=== PATIENT | female | born 2005 | race African-American/Black ===

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

== ENCOUNTER 2023-11-05 10:01 | Emergency (ER) | payer MEDICAID, SELFPAY ==
[2023-11-05 10:11] VITALS: BP 114/64; PULSE 82; RESP 18; TEMP 36.5; O2SAT 98
--- NOTE | 2023-11-05 10:13 | ED.SKABFB ---
HPI - Skin/Abscess/Foreign Bdy General Chief complaint: Skin/Abscess/Foreign Body Stated complaint: rashes Time Seen by Provider: 11/05/23 10:14 Source: patient, RN notes reviewed and old records reviewed Mode of arrival: ambulatory Limitations: no limitations History of Present Illness HPI narrative: patient presents with complaint of fine itchy rash that has been present for a couple of days. She reports that she spent the weekend over at her boyfriend's house, he has a lot of dogs. She did not have the rash prior to this. The rash is scattered, mostly on the neck and the arms. Patient takes hydroxyzine daily 2-3 times per day. She has been taking this as prescribed since the rash began. She also uses an unknown lotion for her eczema. She has not been using this over the past several days. She denies any change in detergents, lotions, soaps. No new foods. No wheezing Related Data Home Medications Medication Instructions Recorded Confirmed escitalopram oxalate 10 mg tablet 10 mg PO DAILY 12/01/22 11/05/23 hydroxyzine HCl 50 mg tablet 50 mg PO HS 12/01/22 11/05/23 norethindrone 1 mg-ethinyl 1 tablet PO DAILY 12/01/22 11/05/23 estradiol 20 mcg (24)-iron 75 mg (4) tablet (Lenora 24 Fe) Allergies Allergy/AdvReac Type Severity Reaction Status Date / Time No Known Allergies Allergy Verified 11/05/23 10:15 Review of Systems Review of Systems: All systems reviewed & are unremarkable except as noted in HPI and below Constitutional: Constitutional: Reports no additional constitutional complaints ENT: Reports system reviewed and no additional complaints, except as documented Cardiovascular: Cardiovascular: Reports no additional cardiovascular complaints Respiratory: Respiratory: Reports no additional respiratory complaints Gastrointestinal: Gastrointestinal: Reports no additional gastrointestinal complaints Integumentary/Breasts: Skin/Breast: Reports pruritus and Reports rash Comments: [facility] Past Medical History Medical History (Updated 11/05/23 @ 10:26 by Tatum Scott APRN) Patient denies medical problems Social History Social History Gender identity (if verbalized by the patient): Female Comments At the time of my signature, I reviewed and agree with the nursing past medical, surgical, social, and family history. There is no relevant family history pertinent to the patient complaint. Exam Const: General: cooperative, no acute distress, alert and awake Orientation/consciousness: oriented to person, oriented to place and oriented to time HENMT: Head: normal to inspection Resp: Effort & Inspection: normal respiratory effort and able to speak in complete sentences Auscultation: clear to auscultation bilaterally, no crackles, no rales, no rhonchi and no wheezes Cardio: Palpation: normal PMI Rate: regular rate Rhythm: regular rhythm Heart sounds: S1 normal heart sound present and S2 normal heart sound present Skin: General skin exam: normal color Rashes: rashes noted ( fine red raised rash noted to arms and neck) Neuro: General: oriented to person, oriented to place and oriented to time Cranial nerves: Yes CN's II-XII intact bilaterally Psych: Appearance: grossly normal Thought process: Normal thought process present Insight: Good insight present (Psych) Judgement: Good judgement present (Psych) Course Course Level of Care: Express Care Visit Vital Signs Vital signs: Vital Signs Temperature 97.7 F 11/05/23 10:11 Pulse Rate 82 11/05/23 10:11 Respiratory Rate 18 11/05/23 10:11 Blood Pressure 114/64 11/05/23 10:11 Pulse Oximetry 98 11/05/23 10:11 Oxygen Delivery Room Air 11/05/23 10:11 Temperature 97.7 F 11/05/23 10:11 Pulse Rate 82 11/05/23 10:11 Respiratory Rate 18 11/05/23 10:11 Blood Pressure 114/64 11/05/23 10:11 Pulse Oximetry 98 11/05/23 10:11 Oxygen Delivery Room
== END 2023-11-05 10:29 | disposition home or self-care (01) ==
PROVIDERS: Emergency Provider Nurse Practitioner Family
DX: L23.9 Allergic contact dermatitis, unspecified cause (principal)
CPT/HCPCS: 99211; G0463

== ENCOUNTER 2025-01-30 11:53 | Emergency (ER) | payer MEDICAID, SELFPAY ==
[2025-01-30 12:05] VITALS: BP 101/60; PULSE 88; RESP 14; TEMP 36.5; O2SAT 100
--- NOTE | 2025-01-30 12:33 | ED.EYEPROB ---
HPI - Eye Problem General Chief complaint: Eye Problems Stated complaint: pink eye Source: patient Mode of arrival: ambulatory Limitations: no limitations History of Present Illness HPI Narrative: this is a pleasant 19-year-old female who presents to the urgent care today with complaints of bilateral eye redness, discharge that is yellow in causing crusting to her eyelashes. Patient states that her eyes are constantly itching her. She denies any blurred vision, eye pain or distress. She does not were contacts she only wears glasses. No known sick contacts. chief complaint: eye pain and eye redness Onset description: sudden Duration: constant Location: both eyes Eye Symptoms: redness, itching and discharge Place: home Mechanism: none Associated symptoms: none Treatments Prior to Arrival: none Related Data Allergies Allergy/AdvReac Type Severity Reaction Status Date / Time No Known Allergies Allergy Verified 01/30/25 12:08 Review of Systems Review of Systems: All systems reviewed & are unremarkable except as noted in HPI and below PMFSH Past Medical History Medical History (Updated 01/30/25 @ 12:35 by Corry Anne APRN) Patient denies medical problems Social History Social History Gender identity (if verbalized by the patient): Female Exam Const: General: healthy appearing Nutritional Appearance: well nourished Orientation/consciousness: patient oriented x3 Limitations: no limitations HENMT: Head: normal to inspection Ears: external ears normal Face/Nose/Sinus: Normal external nose present Face and sinus: normal facial exam Mouth: Yes Normal oral and palatal mucosa present Teeth and gingiva: dentition normal Throat: posterior oropharynx normal Eyes: Conjunctivae: conjunctival abnormality bilateral conjunctival injection and discharge purulent Pupils: Equal, round and reactive pupils present EOM: EOMs intact bilaterally Neck: Neck: normal visual inspection Resp: Effort & Inspection: normal respiratory effort Cardio: Rate: regular rate Rhythm: regular rhythm GI: GI Palp: Yes Soft to palpation Auscultation: normal bowel sounds Skin: General skin exam: normal color Rashes: no rashes Neuro: General: patient oriented x3 Speech: normal speech Extrem: General: normal to inspection and no clubbing, cyanosis or edema Psych: Mental Status: mental status grossly normal Affect: normal affect Course Course Emergency Course: this is a pleasant 19-year-old female who presents to the urgent care today with complaints of bilateral eye redness, discharge that is yellow in causing crusting to her eyelashes. Patient states that her eyes are constantly itching her. She denies any blurred vision, eye pain or distress. She does not were contacts she only wears glasses. No known sick contacts. vital signs reviewed. discussed Diagnosis in treatment. Verbalized understanding. educated patient to keep from touching eyes, good hand hygiene, continue with antibiotic gel twice daily in each eye, wash each eye prior with Dylan's baby shampoo and pat dry. Tylenol as needed for pain follow the primary care provider in the next 2-3 days for further evaluation exam, return to the urgent care or emergency department with any worrisome sign or symptom. Answered all questions to her satisfaction she is agreeable to this plan. She denies any further needs or concerns to be addressed prior to discharge Level of Care: Express Care Visit Vital Signs Vital signs: Vital Signs Temperature 97.7 F 01/30/25 12:05 Pulse Rate 88 01/30/25 12:05 Respiratory Rate 14 01/30/25 12:05 Blood Pressure 101/60 01/30/25 12:05 Pulse Oximetry 100 01/30/25 12:05 Oxygen Delivery Room Air 01/30/25 12:05 Temperature 97.7 F 01/30/25 12:05 Pulse Rate 88 01/30/25 12:05 Respiratory Rate 14 01/30/25 12:05 Blood Pressure 101/60 01/30/25 12:05 Pulse Oximetry 100 01/30/25 12:05 Oxygen Delivery Room Air 01/30/25 12:05 MDM - Eye Problem MDM Narrative Medical decision making narrative: this is a pleasant 19-year-old female who presents to the urgent care today with complaints of bilateral eye redness, discharge that is yellow in causing crusting to her eyelashes. Patient states that her eyes are constantly itching her. She denies any blurred vision, eye pain or distress. She does not were contacts she only wears glasses. No known sick contacts. vital signs reviewed. discussed Diagnosis in treatment. Verbalized understanding. educated patient to keep from touching eyes, good hand hygiene, continue with antibiotic gel twice daily in each eye, wash each eye prior with Dylan's baby shampoo and pat dry. Tylenol as needed for pain follow the primary care provider in the next 2-3 days for further evaluation exam, return to the urgent care or emergency department with any worrisome sign or symptom. Answered all questions to her satisfaction she is agreeable to this plan. She denies any further needs or concerns to be addressed prior to discharge Differential Diagnosis Differential diagnosis: Likely conjunctivitis and periorbital cellulitis Medical Records Attestation: I reviewed the patient's medical records. Discharge Plan Discharge Clinical Impression: Bacterial conjunctivitis Patient Disposition: Home Condition: Stable Instructions: Antibiotic Form, Conjunctivitis (ED) Additional Instructions: keep from touching eyes, good hand hygiene continue with antibiotic gel twice daily in each eye wash each eye prior with Dylan's baby shampoo and pat dry. Tylenol as needed for pain follow the primary care provider in the next 2-3 days for further evaluation exam, return to the urgent care or emergency department with any worrisome sign or symptom Patient Language: Italian Prescriptions: New erythromycin 5 mg/gram (0.5 %) ointment 0.5 inch EACH EYE BID 5 Days Qty: 3.5 0RF Follow-up/Referrals: UNKNOWN,DOCTOR [Primary Care Provider] Stand Alone Forms: Work/School Release IP Time of Disposition: 12:36
== END 2025-01-30 12:40 | disposition home or self-care (01) ==
PROVIDERS: Emergency Provider Nurse Practitioner Family
DX: H10.9 Unspecified conjunctivitis (principal)
CPT/HCPCS: 99213; G0463

== ENCOUNTER 2025-02-02 17:53 | Emergency (ER) | payer MEDICAID, SELFPAY ==
[2025-02-02 18:05] VITALS: BP 110/66; PULSE 81; RESP 14; TEMP 36.7; O2SAT 100
--- NOTE | 2025-02-02 18:08 | ED_ITS ---
HPI - URI/Sore Throat General Chief Complaint: Urogenital-Female Stated Complaint: Vaginal Bleeding / Sore Throat Time Seen by Provider: 02/02/25 18:08 Source: patient Mode of arrival: ambulatory Limitations: no limitations History of Present Illness HPI Narrative: Carole is a 19 year old female patient presenting to the clinic today with c/o with vaginal pain, vaginal discharge, and sore throat. She reports sore throat started today. She denies any other URI symptoms. No fevers, chills, body aches. Reports vaginal pain and odorous yellow vaginal discharge that started on Sunday. She is reporting some lower back pain. Has had recent intercourse 1 week ago. States she does have a new sexual partner. Has not been using condoms. Feels as though she has a vaginal tear to the posterior opening of her vagina. Last intercourse was not painful or rough. Related Data Allergies Allergy/AdvReac Type Severity Reaction Status Date / Time No Known Allergies Allergy Verified 02/02/25 18:02 Review of Systems Review of Systems: Pertinent positives per HPI. Patient denies any fever, chills, rash, headache, visual changes, dizziness, cough, shortness of breath, chest pain, palpitations, nausea, vomiting, diarrhea, constipation, abdominal pain, or any urinary issues. PMFSH Past Medical History Medical History Patient denies medical problems Social History Social History Gender identity (if verbalized by the patient): Female Comments At the time of my signature, I reviewed and agree with the nursing past medical, surgical, social, and family history. There is no relevant family history pertinent to the patient complaint. Exam Narrative: General: Well-developed, well nourished, in no apparent distress Head: Normocephalic, atraumatic Eyes: Pupils equally round and reactive to light bilaterally, EOM intact, sclera and conjunctive clear, no discharge, lids normal Ears: TMs intact and clear, ear canals clear, no drainage, grossly hearing normal. Nose: Nares patent, no discharge, no inflammation, no sinus tenderness. Mouth: Oral pharynx without lesions or masses, good dentition, MMM. Neck: Supple, trachea midline, no enlargement of anterior or posterior cervical nodes, no thyroid masses or goiter palpable. Cardio: Regular rate and rhythm, s1 and s2 normal, no murmur appreciated. Resp: Clear to auscultation bilaterally, no rhonchi, rales, wheezing or rubs Abdomen: Soft, pliable, bowel sounds present in all quadrants, non-tender to palpation, no CVAT tenderness. : Pelvic exam performed with (Katherin DAVE) at bedside. Verbal consent obtained from patient. Normal external female genitalia without masses Urinary meatus: patent without discharge, Vagina: No masses, light yellow discharge, ulcerated vaginal lesion to the posterior left vaginal os Course Course Emergency Course: Portions of this record may have been created with voice recognition software. Level of Care: Express Care Visit Vital Signs Vital signs: Vital Signs Temperature 36.7 C 02/02/25 18:05 Pulse Rate 81 02/02/25 18:05 Respiratory Rate 14 02/02/25 18:05 Blood Pressure 110/66 02/02/25 18:05 Pulse Oximetry 100 02/02/25 18:05 Oxygen Delivery Room Air 02/02/25 18:05 Temperature 36.7 C 02/02/25 18:05 Pulse Rate 81 02/02/25 18:05 Respiratory Rate 14 02/02/25 18:05 Blood Pressure 110/66 02/02/25 18:05 Pulse Oximetry 100 02/02/25 18:05 Oxygen Delivery Room Air 02/02/25 18:05 Vital signs reviewed MDM - URI/Sore Throat MDM Narrative Medical decision making narrative: At the time of visit patient is resting comfortably on the exam table. Patient appears to be nontoxic. C/o with vaginal pain, vaginal discharge, and sore throat. She reports sore throat started today. She denies any other URI symptoms. No fevers, chills, body aches. Reports vaginal pain and yellow va ginal discharge that started on Sunday. She is reporting some lower back pain. Has had recent intercourse 1 week ago. States she does have a new sexual partner. Has not been using condoms. Feels as though she has a vaginal tear to the posterior vaginal opening. Last intercourse was not painful or rough. On exam patient has bilateral TMs intact and clear, no nasal drainage, oral pharynx red with bilateral tonsillar enlargement, no cervical lymphadenopathy, lung sounds are clear, heart rates regular rate rhythm, abdomen soft pliable, nondistended, no organomegaly, bowel sounds present all 4 quadrants, vaginal exam performed-ulcerated lesion to the left posterior vaginal opening, tender/burning to palpation, faint yellow vaginal discharge on vaginal swabs, full pelvic exam with vaginal speculum was not performed due to patient's discomfort. Labs: Strep test was positive in the clinic today. Urine shows 2+ blood, bedside test is negative, Bacterial vaginosis, genital culture, chlamydia, gonorrhea, Trichomonas, HSV swab was sent to the lab. Plan: I suspect patient has strep pharyngitis, vaginal discharge, vaginal pain- with ulcerated lesions-likely genital herpes. Prescription for Augmentin, acyclovir, and viscous lidocaine was sent to the pharmacy. Anticipatory guidance given. We will hold off on any other treatment at this time until we get results back. Supportive measures were discussed with the patient and they voiced understanding discharge instructions and agrees to treatment plan. Return precautions reviewed Differential Diagnosis Differential diagnosis: Likely upper respiratory infection, otitis media, sinusitis, viral infection, bronchitis, influenza, pharyngitis and other (COVID) Lab Data Labs: Lab Results 02/02/25 02/02/25 02/02/25 Range/Units 18:27 18:49 18:55 POC Urine Color POC Urine Clarity POC Urine pH POC Ur Specif [place] POC Urine Protein (Negative) POC Ur Glucose (UA) (Negative) POC Urine Ketones (Negative) POC Urine Blood (Negative) POC Urine Nitrite (Negative) POC Urine Bilirubin (Negative) POC Urine Urobilinogen POC U Leukocyte Esteras (Negative) POC Urine HCG, Qual Negative (Negative) HSV I DNA PCR Pending HSV II DNA PCR Pending POC Grp A Strep Screen Positive (Negative) 02/02/25 Range/Units 18:56 POC Urine Color Yellow POC Urine Clarity Clear POC Urine pH 5.5 POC Ur Specif [place] 1.030 POC Urine Protein Negative (Negative) POC Ur Glucose (UA) Negative (Negative) POC Urine Ketones Negative (Negative) POC Urine Blood 2+ (Negative) POC Urine Nitrite Negative (Negative) POC Urine Bilirubin Negative (Negative) POC Urine Urobilinogen 0.2 POC U Leukocyte Esteras Negative (Negative) POC Urine HCG, Qual (Negative) HSV I DNA PCR HSV II DNA PCR POC Grp A Strep Screen (Negative) Discharge Plan Discharge Clinical Impression: Vaginal discharge, Vaginal pain, Acute streptococcal pharyngitis Patient Disposition: Home Condition: Stable Instructions: Antibiotic Form, Strep Throat (ED), Vaginal Discharge (ED) Additional Instructions: Strep discharge instructions: Take prescription medications only as prescribed-Augmentin Increase fluids and stay well hydrated May take Tylenol or motrin as directed on bottle for pain/fever Go to the ED if you develop a worsening in your condition- high fever not controlled by Tylenol or Motrin, dehydration, weakness, lethargy, shortness of breath, or chest pain. Follow up with your PCP in 3-5 days if symptoms persist. Vaginal discharge/pelvic pain: I suspect you may have genital herpes Take acyclovir as prescribed. May apply viscous lidocaine to the affected area to help alleviate pain We have tested/treated you for STIs in the clinic today. Test sent for bacterial vaginosis, chlamydia, gonorrhea, Trichomonas, herpes swab, and genital culture Avoid any sexual activity- includes oral, anal, or vaginal intercourse until you get results back and have completed any additional recommended treatment regimens. We will contact you if testing is positive and make sure your treatment is appropriate for the type of STI. If symptoms worsen after treatment recommend reevaluation with your PCP or STI clinic. Patient Language: Romanian Prescriptions: New amoxicillin-pot clavulanate 875-125 mg tablet 1 tablet PO Q12H 10 Days Qty: 20 0RF lidocaine HCl [Lidocaine Viscous] 2 % solution 1 applic topical QID PRN (Reason: pain) 7 Days Qty: 100 1RF acyclovir 400 mg tablet 400 mg PO TID 7 Days Qty: 21 0RF No Action erythromycin 5 mg/gram (0.5 %) ointment 0.5 inch EACH EYE BID 5 Days Qty: 3.5 0RF Follow-up/Referrals: PHYSICIAN,[employer]ER [Primary Care Provider, Internal Medicine] Stand Alone Forms: Work/School Release IP Time of Disposition: 19:00 Quality NIHSS Nursing Documentation ED NIHSS nursing documentation: reviewed/agree
[2025-02-02 18:29] LABS: EDSTREPNEGPOS1 Positive (Negative)
[2025-02-02 18:56] LABS: BEDSIDEPREGUCG Negative (Negative)
[2025-02-02 18:59] LABS: EDUAAPPEAR Clear; EDUABILI Negative (Negative); EDUABLOOD 2+ (Negative); EDUACOLOR1 Yellow; EDUAGLUCOSE Negative (Negative); EDUAKETONE Negative (Negative); EDUALEUKO Negative (Negative); EDUANITRATE Negative (Negative); EDUAPH 5.5; EDUAPROTEIN Negative (Negative); EDUASPGRAVITY 1.030; EDUAUROBILI 0.2
[2025-02-03 19:50] LABS: Trichomonas Vag PCR NOT DETECTED (NOT DETECTE)
[2025-02-06 05:08] LABS: HSV-1 DNA Negative (Negative); HSV-2 DNA Positive (Negative)
== END 2025-02-02 19:10 | disposition home or self-care (01) ==
PROVIDERS: Emergency Provider Nurse Practitioner Family
DX: A74.9 Chlamydial infection, unspecified (principal); N76.0 Acute vaginitis; J02.0 Streptococcal pharyngitis
CPT/HCPCS: 81003; 81025; 86615; 87070; 87491; 87529; 87591; 87661; 87798; 87880; 99213; G0463